=== PATIENT | male | born 1975 | race Caucasian/White ===

== ENCOUNTER → 2018-11-08 | Outpatient (CLI) | payer BC ==
--- NOTE | 2018-11-08 08:15 | CT ---
EXAMINATION TYPE: CT chest w con DATE OF EXAM: 11/08/2018 COMPARISON: 09/16/2014 HISTORY: cough, chest pain, night sweats CT DLP: 572.4 mGycm Automated exposure control for dose reduction was used. CONTRAST: CT scan of the chest is performed with IV Contrast, patient injected with 100 mL of Isovue 300. FINDINGS: LUNGS: The lungs are grossly clear, there is no concerning parenchymal mass or nodule identified. T here is no pleural effusion or pneumothorax seen. The tracheobronchial tree is patent. MEDIASTINUM: There are no greater than 1 cm hilar or mediastinal lymph nodes. No pericardial effusi on is seen. OTHER: Hypertrophic changes of the vertebral column. Surgical clips in the gallbladder fossa. Hypode nse lesion within the left kidney stable and too small to characterize. Thyroid extends substernally. Accessory spleen noted. IMPRESSION: 1. No acute intrathoracic process. 2. Stable left renal lesion. 3. Thyroid extends substernally correlate clinically.
== END | disposition home or self-care (01) ==
LOC: RADCTMAIN 06:48
PROVIDERS: ATTEND Internal Medicine
DX: E04.9 Nontoxic goiter, unspecified (principal); R61 Generalized hyperhidrosis
CPT/HCPCS: 71260; Q9967

== ENCOUNTER → 2018-11-11 | Outpatient (CLI) | payer BC ==
--- NOTE | 2018-11-11 10:29 | CT ---
EXAMINATION TYPE: CT abdomen pelvis w con DATE OF EXAM: 11/11/2018 COMPARISON: 08/18/2015 HISTORY: chronic cough x6 months. Generalized hyperhidrosis. CT DLP: 1609.5 mGycm Automated exposure control for dose reduction was used. TECHNIQUE: Helical acquisition of images was performed from the lung bases through the pelvis. CONTRAST: Performed with Oral Contrast and with IV Contrast, patient injected with 100 mL of Isovue 300. FINDINGS: LUNG BASES: No significant abnormality is appreciated. LIVER/GB: There is a 7 mm suspected flash filling hemangioma in segment 7 on image 16, vaguely seen o n the exam of 2014. No washout is seen on delayed imaging. Hepatic parenchyma is diffusely hypoattenu ated in comparison to that of the spleen, most commonly seen in hepatic steatosis. This finding limit s evaluation for hepatic masses. Gallbladder is surgically absent PANCREAS: No significant abnormality is seen. SPLEEN: There is a splenule adjacent to the [place] spleen. ADRENALS: No significant abnormality is seen. KIDNEYS: Too small to accurately characterize left renal lesion is 8 mm but favored to represent a cy st. Otherwise the kidneys enhance and excrete symmetrically. FREE AIR: No free air is visualized. REPRODUCTIVE ORGANS: Central zone calcifications are seen within the prostate. URINARY BLADDER: No significant abnormality is seen. ADENOPATHY: No greater than 1 cm short axis lymph node is seen within the abdomen or pelvis. OSSEOUS STRUCTURES: Postsurgical changes are present of the lumbosacral spine. BOWEL: There is diffuse thickening of the gastric folds that may relate to incomplete distention or gastritis. Moderate amount retained colonic stool seen within the rectal vault. No dilated large or s mall bowel. IMPRESSION: 1. NO ACUTE INTRA-ABDOMINAL PATHOLOGY. 2. HEPATIC STEATOSIS WITH SUSPECTED SMALL HEPATIC HEMANGIOMA. 3. DIFFUSE GASTRIC THICKENING MAY RELATE TO INCOMPLETE GASTRITIS.
== END | disposition home or self-care (01) ==
LOC: RADCTMAIN 08:10
PROVIDERS: ATTEND Internal Medicine
DX: K76.0 Fatty (change of) liver, not elsewhere classified (principal)
CPT/HCPCS: 74177; Q9967

== ENCOUNTER 2019-01-11 12:37 | Emergency (ER) | payer BC ==
[2019-01-11 12:55] VITALS: RESP 18
--- NOTE | 2019-01-11 13:29 | ED ---
General Adult HPI - General Chief complaint: Extremity Injury, Lower Stated complaint: [facility] - rt foot injury Time Seen by Provider: 01/11/19 13:01 Source: patient Mode of arrival: ambulatory Limitations: no limitations - History of Present Illness Initial comments: Patient is a 43-year-old male presenting to emergency Department with right foot pain. Patient states that yesterday he was carrying an object when he inverted his right ankle. Patient reports he only had mild pain but it increased when he woke up this morning. Patient reports the pain is only noticeable when weightbearing otherwise minimal at rest. Patient reports 3 surgical procedures causing him to have limited feeling below the knees bilaterally. Patient reports is concern for possible fracture. Patient denies any numbness or tingling. Patient reports most of his pain is located in the mid foot area. Patient denies taking any medication to alleviate the pain. Patient denies any swelling or ecchymosis. - Related Data Home Medications Medication Instructions Recorded Confirmed Loratadine [Claritin] 10 mg PO QAM 10/18/14 01/11/19 Diltiazem HCl [Cardizem LA] 120 mg PO DAILY 08/20/15 01/11/19 Cholecalciferol (Vitamin D3) 2,000 unit PO DAILY 01/11/19 01/11/19 [Vitamin D3] Gabapentin [Neurontin] 300 mg PO DAILY 01/11/19 01/11/19 Pantoprazole Sodium [Protonix] 20 mg PO BID 01/11/19 01/11/19 Thiamine [Vitamin B-1] 50 mg PO DAILY 01/11/19 01/11/19 Allergies Allergy/AdvReac Type Severity Reaction Status Date / Time azithromycin [From Zithromax] Allergy Unknown Verified 01/11/19 13:59 cefazolin sodium [From Ancef] Allergy Unknown Verified 01/11/19 13:59 Sulfa (Sulfonamide Allergy Unknown Verified 01/11/19 13:59 Antibiotics) hydrocodone bitartrate AdvReac Unknown Verified 01/11/19 13:59 [From Vicodin] Review of Systems ROS Statement: Those systems with pertinent positive or pertinent negative responses have been documented in the HPI. ROS Other: All systems not noted in ROS Statement are negative. Past Medical History Past Medical History: Hypertension History of Any Multi-Drug Resistant Organisms: None Reported Past Surgical History: Back Surgery, Cholecystectomy Additional Past Surgical History / Comment(s): back surgery x 3 Past Psychological History: No Psychological Hx Reported Smoking Status: Former smoker Past Alcohol Use History: Occasional Past Drug Use History: None Reported General Exam Limitations: no limitations General appearance: alert, in no apparent distress Head exam: Present: atraumatic, normocephalic, normal inspection Eye exam: Present: normal appearance Neck exam: Present: normal inspection Respiratory exam: Present: normal lung sounds bilaterally. Absent: respiratory distress Cardiovascular Exam: Present: regular rate, normal rhythm, normal heart sounds Right Upper Leg exam: Present: normal inspection, full ROM Knee exam: Present: normal inspection, full ROM Lower Leg exam: Present: normal inspection, full ROM. Absent: Homans' sign Ankle exam: Present: normal inspection, full ROM Foot/Toe exam: Present: tenderness (Midfoot), tenderness at base of 5th metatarsal (Mild). Absent: swelling, abrasion, laceration, ecchymosis, erythema, calcaneal tenderness, nail avulsion Neurovascular tendon exam: Present: no vascular compromise. Absent: extremity cold to touch Gait: observed and limited by pain Neurological exam: Present: alert, oriented X3 Psychiatric exam: Present: normal affect, normal mood Skin exam: Present: warm, normal color Course Vital Signs 01/11/19 12:52 Temperature 98.4 F Pulse Rate 86 Respiratory 18 Rate Blood Pressure 149/92 O2 Sat by Pulse 95 Oximetry Medical Decision Making - Medical Decision Making Patient is a 43-year-old male presenting to emergency Department with right foot pain. X-ray of the right foot was ordered. X-ray right foot is unremarkable for any fracture or dislocation. Patient was given a postoperative shoe to keep the foot in mold. Patient advised to keep foot elevated and alternate between ibuprofen and Tylenol for pain control. Based on physical examination and imaging, the injury is most likely a muscle sprain that'll resolve on its own. Patient advised to follow-up with orthopedic. Patient advised to return to emergency department if symptoms worsen. Patient advised to keep foot elevated and use warm or cold packs. Case discussed with physician. Disposition Clinical Impression: Foot pain, right Disposition: HOME SELF-CARE Condition: Stable Instructions (If sedation given, give patient instructions): Foot Sprain (ED) Additional Instructions: Please take Tylenol or ibuprofen for pain control. Please keep foot elevated and continue using orthopedic shoe until pain subsides. Please follow up with orthopedics. Please return to emergency department if symptoms worsen. Is patient prescribed a controlled substance at d/c from ED?: No Referrals: Duncan Rodas MD [Primary Care Provider] - 1-2 days José Luis Hirsch MD [STAFF PHYSICIAN] - 1-2 days Time of Disposition: 14:19
--- NOTE | 2019-01-11 13:59 | XR ---
EXAMINATION TYPE: XR foot complete RT DATE OF EXAM: 01/11/2019 CLINICAL HISTORY: Rolling injury with pain. TECHNIQUE: Frontal, lateral, and oblique images of the right foot are obtained. COMPARISON: None FINDINGS: There is no acute fracture/dislocation evident in the right foot. Some flexion in the toes is present. There is some varus positioning distal fourth and fifth toes. The joint spaces in the ri ght foot appear within normal limits. Mild plantar surface subcutaneous edema is present. IMPRESSION: There is no acute fracture or dislocation in the right foot.
[2019-01-11 15:19] VITALS: BP 138/79; PULSE 78; TEMP 98.2
== END 2019-01-11 14:45 | disposition home or self-care (01) ==
LOC: EC 12:37
DX: M25.571 Pain in right ankle and joints of right foot (principal); I10 Essential (primary) hypertension; Z79.899 Other long term (current) drug therapy; Z87.891 Personal history of nicotine dependence; Z88.1 Allergy status to other antibiotic agents; Z88.2 Allergy status to sulfonamides; Z88.5 Allergy status to narcotic agent; Z88.6 Allergy status to analgesic agent
CPT/HCPCS: 99283

== ENCOUNTER → 2021-10-16 | Outpatient (CLI) | payer BC ==
--- NOTE | 2021-10-16 10:33 | MR ---
EXAMINATION TYPE: MR brain and iac wo/w con DATE OF EXAM: 10/16/2021 COMPARISON: NONE HISTORY: R42 dizziness and giddiness, some recent memory issues TECHNIQUE: Multiplanar, multisequence images of the brain and brainstem including internal auditory canals are a ll performed without and with IV contrast, utilizing 11.5 mL intravenous Gadavist . FINDINGS: Diffusion weighted images demonstrate no evidence of a recent infarct or other diffusion ab normality. There is no extra-axial fluid collection or significant white matter signal abnormality. The ventricular system and cisternal spaces are normal in size and appearance. The brain volume is age appropriate. Midline structures demonstrate normal morphology. The craniocervical junction appears within normal limits. Post contrast images demonstrate no abnormal enhancement. The dural venous sinuses appear pa tent. The visualized sinuses are clear and the globes are intact. No suspicious fluid signal in the mastoid air cells bilaterally. The vestibulocochlear complexes are symmetric and felt within normal limits. No suspicious enhancing cerebellopontine angle mass is ident ified bilaterally. IMPRESSION: Source of patient's symptoms not identified.
== END | disposition home or self-care (01) ==
LOC: RADMRIMAIN 07:26
PROVIDERS: ATTEND Family Medicine
DX: R42 Dizziness and giddiness (principal)
CPT/HCPCS: 70553; A9585